=== PATIENT | male | born 1990 | race Caucasian/White ===

== ENCOUNTER 2022-09-22 12:11 | Emergency (ER) | payer SELFPAY ==
[2022-09-22 12:18] VITALS: BP 143/82; PULSE 90; RESP 20; TEMP 36.5; O2SAT 98; BMI 22.8
--- NOTE | 2022-09-22 12:49 | ED_ITS ---
HPI - Wound/Laceration General: Chief Complaint: Wound/Laceration Stated Complaint: right hand finger lac Time Seen by Provider: 09/22/22 12:22 History of Present Illness: 32-year-old male who was opening up a cat with a pocket knife lacerated his finger. Patient is right-handed male and lacerated his third finger on the dorsum of the finger at the distal joint proximal to the eponychium. Does not recall date of last tetanus vaccination. No numbness or tingling, able to extend and flex the digit at the distal, proximal, and MCP joint. Associated symptoms: Denies chills, fever(s) or nausea Review of Systems Const: Denies: fever(s) or chills Eyes: Denies: change in vision, blurry vision or blind spots ENMT: Denies: throat pain or uvular edema Card: Denies: chest pain or palpitations Resp: Denies: dyspnea or productive cough GI: Denies: abdominal pain or nausea Musc: Reports: extremity pain, joint pain, joint swelling and joint redness; Denies: neck pain or back pain Neuro: Denies: numbness in extremities or weakness in extremities Physical Exam Const: COMMON NORMALS: no acute distress and average body habitus HENMT: COMMON NORMALS: normocephalic, atraumatic and Normal external nose present HEAD & SCALP: normocephalic and atraumatic FACE & SINUS: normal facial exam NOSE: Normal external nose present THROAT: no uvular edema Eye: COMMON NORMALS: Equal, round and reactive pupils present and EOMs intact bilaterally PUPIL: Yes Equal, round and reactive pupils present Neck/C-Spine: COMMON NORMALS: full ROM and no lymphadenopathy Chest: COMMONS NORMALS: normal inspection of the chest and normal palpation of entire chest wall Resp: COMMON NORMALS: normal respiratory effort and No retractions Cardio: COMMON NORMALS: regular rate and regular rhythm RATE: regular rate RHYTHM: regular rhythm GI: COMMON NORMALS: Normal to inspection, nondistended, normoactive bowel sounds present Back/Pelvis: COMMON NORMALS: thoracic and lumbar spine normal to inspection Extremity: COMMON NORMALS: normal to inspection and full ROM NARRATIVE EXTREMITY EXAM: Examination of right hand demonstrates 1 cm laceration to the distal aspect of the right third finger on the dorsum. Angulated laceration towards the thumb. Probing of the wound does not demonstrate visible tendon. Intact strength at the DIP, PIP, and MCP. Intact sensation to gross touch on ulnar and radial aspect of the finger. Course Vital Signs: Vital signs: Vital Signs Temperature 97.7 F 09/22/22 12:18 Pulse Rate 90 09/22/22 12:18 Respiratory Rate 20 H 09/22/22 12:18 Blood Pressure 143/82 09/22/22 12:18 Pulse Oximetry 98 09/22/22 12:18 Oxygen Delivery Me thod 09/22/22 12:18 MDM - Wound/Laceration Medical Decision Making 32-year-old male with dominant right hand laceration on the dorsal aspect of the finger without tendon injury or neurovascular injury. Vitals nonactionable. Repair per procedure note above. Educated about possible complications of suture repair including failure of nail growth, infection, need to have sutures removed in 7 to 10 days. No evidence of infection today or tenderness injury or obvious bone exposure. No suspicion for fracture given mechanism. Discharge Plan Discharge Patient Disposition: Home, Self-Care w Plan Readm Clinical Impression: Laceration Condition: Stable Discharge Orders: Discharge ED (Routine); Ordered 09/22/22 Ordered By: Luis F Dumont Referrals: Luis F Dumont MD [Emergency Provider] - (Return to the emergency department with any concerns for infection, limited range of motion, other concerns about his repair today. Have your sutures removed in approximately 7 days. Do not submerge your wound in water. Keep open to air. Keep clean.) Discharge Diet: Usual diet Discharge Activity: Limit activity as instructed Patient Instructions: Finger Laceration (ED) Coding Level of Care Code ED Medical Billing And Coding Specialist for Katlyn Thacker
[2022-09-22] MEDS: tetanus-dipt-pertussis 0.5 mL SDV IM (12:55)
[2022-09-22] MEDS: lidocaine 1% INJ 10 mL (per mL) INJECTION (12:55)
== END 2022-09-22 13:02 | disposition home or self-care, planned readmission (81) ==
PROVIDERS: Emergency Provider General Practice
DX: S61.212A Laceration without foreign body of right middle finger without damage to nail, initial encounter (principal); W26.0XXA Contact with knife, initial encounter; Z23 Encounter for immunization
CPT/HCPCS: 12001; 90471; 90715; 99283

== ENCOUNTER 2023-08-14 12:01 | Outpatient (CLI) | payer BC, MEDICAID, SELFPAY ==
--- NOTE | 2023-08-14 12:03 | XR_ITS ---
WS: [id number] XR lumbar spine 2-3V* [id number] REASON FOR EXAM: chronic rt LBP FINDINGS: Mild rotatory scoliosis convex right. Spina bifida occulta L5. No other lumbar vertebral body abnormality. Minimal narrowing of the L4-L5 and L5 on S1 disc spaces. 67 mm of anterolisthesis of L5 on S1. IMPRESSION: Mild changes of degenerative spondylosis at L4-L5 and L5-S1 as above. The listhesis at L5-S1 potentially could be due to dysplasia or spondylolysis of posterior elements o f L5.
== END 2023-08-14 12:02 | disposition home or self-care (01) ==
LOC: RAD 12:02
PROVIDERS: Visit Provider Family Medicine Adult Medicine
DX: M47.817 Spondylosis without myelopathy or radiculopathy, lumbosacral region (principal); G89.29 Other chronic pain; Z78.9 Other specified health status
CPT/HCPCS: 72100

== ENCOUNTER 2024-03-10 13:10 | Emergency (ER) | payer BC, MEDICAID, SELFPAY ==
--- NOTE | 2024-03-10 13:09 | ECG_ITS ---
[facility] Test Date: 2024-03-10 Pat Name: Shayna Murphy Department: Room: Gender: Male Senior Insight Manager: : 1990 Requested By: Zulma Thomas Order Number: [id number] Melo MD: Channing Larry M.D. Measurements Intervals Hale Rate: 64 P: 73 GA: 187 QRS: 94 QRSD: 111 T: 68 QT: 432 QTc: 449 Interpretive Statements SINUS RHYTHM BORDERLINE RIGHT AXIS DEVIATION [QRS AXIS > 90] MODERATE INTRAVENTRICULAR CONDUCTION DELAY [110+ ms QRS DURATION] MODERATE ST DEPRESSION [0.05+ mV ST DEPRESSION] No previous ECG available for comparison Electronically Signed On 03-10-2024 16:11:54 CDT by Channing Larry M.D. [id number]
[2024-03-10 13:16] VITALS: BP 136/87; PULSE 70; RESP 16; TEMP 36.8; O2SAT 99; BMI 21.1
--- NOTE | 2024-03-10 13:32 | W.ED.CHESTPA ---
HPI - Chest Pain General: Chief Complaint: Chest Pain Stated Complaint: SOB, chest discomfort, fingernails blue Time Seen by Provider: 03/10/24 13:31 History of Present Illness: 33-year-old male patient comes in today for episodes of shortness of breath with occasional cough, fatigue, nightmares, night terrors. Patient reports the symptoms usually occur at night and awakes him. Patient has also noticed some discoloration in his nailbeds. Patient has a history of substance use disorder. Patient states that he had got hooked on some Internet drugs that he was taking for chronic pain. Patient has recently completed a round of Sublocade through a healthcare provider [place] in [facility]. Patient took his last dose of the medication 1 month ago. Patient appears nontoxic. Patient denies any other chronic medical disorder. Review of Systems General: Reports: 10 or more systems reviewed and unremarkable except in HPI and below PFSH ED PFSH: Medical History (Updated 03/10/24 @ 14:44 by EMELYN Cole) Epigastric abdominal pain Chronic pain [place]-neck deformity of finger of right hand Low back pain syndrome Surgical History (Updated 08/14/23 @ 11:46 by Burak Regan MD) No pertinent past surgical history Family History (Updated 08/14/23 @ 11:20 by Eunice Donald LPN) Father Stroke Hypertension Mother No problems noted. Social History (Updated 08/14/23 @ 11:20 by Eunice Donald LPN) Smoking and tobacco/nicotine status: former use of tobacco/nicotine Quit status (tobacco/nicotine): has quit using Alcohol intake: former Substance/Drug Use: former Physical Exam Const: COMMON NORMALS: alert HENMT: COMMON NORMALS: normocephalic HEAD & SCALP: normocephalic Neck/C-Spine: COMMON NORMALS: full ROM Chest: COMMONS NORMALS: normal inspection of the chest Resp: COMMON NORMALS: normal respiratory effort and clear to auscultation bilaterally AUSCULTATION: clear to auscultation bilaterally Cardio: COMMON NORMALS: regular rate and regular rhythm RATE: regular rate RHYTHM: regular rhythm GI: AUSCULTATION: Yes normoactive bowel sounds PALPATION: Yes Tenderness to palpation present (GI) (epigastric) : COMMON NORMALS: Yes no CVA tenderness BLADDER/KIDNEY EXAM: Yes no CVA tenderness Back/Pelvis: COMMON NORMALS: no CVA tenderness and thoracic and lumbar spine normal to inspection Extremity: COMMON NORMALS: normal to inspection Neuro: SENSORIUM/ORIENTATION: Yes alert Skin: COMMON NORMALS: turgor normal GENERAL SKIN EXAM: turgor normal Course Vital Signs: Vital signs: Vital Signs Temperature 98.3 F 03/10/24 13:16 Pulse Rate 64 03/10/24 13:51 Respiratory Rate 16 03/10/24 13:16 Blood Pressure 122/77 03/10/24 13:51 Pulse Oximetry 95 03/10/24 13:51 Oxygen Delivery Me thod Room Air 03/10/24 13:51 MDM - Chest Pain Medical Decision Making 33-year-old male patient comes in today for complaints of shortness of breath, fatigue, and occasional cough. Patient appears nontoxic. Patient reports symptoms started about 2 weeks ago. Skin is warm and dry. Lungs are clear to auscultation. Vital signs are normal. Differential diagnosis includes but not limited to viral syndrome, anxiety disorder, asthma, adverse drug effect, anemia, arrhythmia, pneumonia. Chest x-ray was unremarkable. EKG showed no ST elevation or arrhythmia. CBC and CMP were unremarkable. Reviewed these and exams with patient with recommendation for further follow-up and treatment. Patient was due for another dose of Sublocade tomorrow I kind of feel that it may be due to the medication and him weaning off the medication. Recommended patient follow-up with his provider for this medication and suggestions for further evaluation and treatment. Lab Data 03/10/24 13:55 03/10/24 13:55 Radiology Impressions Chest X-Ray 03/10/24 13:41 IMPRESSION: No acute or subacute chest abnormality. Laboratory Results WBC 4.30 10^3/uL (3.29-11.43) 03/10/24 13:55 RBC 5.31 10^6/uL (3.85-5.65) 03/10/24 13:55 Hgb 15.50 g/dL (11.27-16.99) 03/10/24 13:55 Hct 45.8 % (37-53) 03/10/24 13:55 MCV 86.3 fl (82-101) 03/10/24 13:55 MCH 29.2 pg (27-33) 03/10/24 13:55 MCHC 33.8 g/dL (30-55) 03/10/24 13:55 RDW 12.4 % (12.1-15.1) 03/10/24 13:55 Plt Count 233 10^3/cmm (157-399) 03/10/24 13:55 MPV 9.5 fL (7.4-10.4) 03/10/24 13:55 Neut % (Auto) 49.8 % 03/10/24 13:55 Lymph % (Auto) 40.9 % 03/10/24 13:55 Citrus % (Auto) 6.3 % 03/10/24 13:55 Eos % (Auto) 1.9 % 03/10/24 13:55 Baso % (Auto) 0.9 % 03/10/24 13:55 Neut # (Auto) 2.14 10^3/uL (1.8-7.7) 03/10/24 13:55 Lymph # (Auto) 1.8 10^3/uL (0.8-4.8) 03/10/24 13:55 Citrus # (Auto) 0.3 10^3/uL (0.2-0.9) 03/10/24 13:55 Eos # (Auto) 0.1 10^3/uL (0.0-0.8) 03/10/24 13:55 Baso # (Auto) 0.0 10^3/uL (0.0-0.1) 03/10/24 13:55 Nucleated RBC % (auto) 0 % 03/10/24 13:55 Nucleated RBCs # 0.0 /100WBC 03/10/24 13:55 ESR 3 mm/hr (0-10) 03/10/24 13:55 Sodium 141 mmol/L (136-145) 03/10/24 13:55 Potassium 3.9 mmol/L (3.5-5.1) 03/10/24 13:55 Chloride 101 mmol/L (98-107) 03/10/24 13:55 Carbon Dioxide 30 mmol/L (22-29) H 03/10/24 13:55 Anion Gap 13.9 (5-19) 03/10/24 13:55 BUN 11 mg/dL (6-20) 03/10/24 13:55 Creatinine 0.9 mg/dL (0.7-1.2) 03/10/24 13:55 GFR Calculation 98.4 mL/min (90-130) 03/10/24 13:55 Glucose 96 mg/dL (65-115) 03/10/24 13:55 Calculated Osmolality 291 mOsm/kg (285-295) 03/10/24 13:55 Calcium 9.8 mg/dL (8.5-10.5) 03/10/24 13:55 Total Bilirubin 0.6 mg/dL (0.15-1.2) 03/10/24 13:55 AST 20 U/L (0-40) 03/10/24 13:55 ALT 22 U/L (0-41) 03/10/24 13:55 Alkaline Phosphatase 67 U/L (40-130) 03/10/24 13:55 C-Reactive Protein 3.0 mg/L (0.0-4.9) 03/10/24 13:55 Total Protein 8.3 g/dL (6.6-8.7) 03/10/24 13:55 Albumin 5.2 g/dL (3.5-5.2) 03/10/24 13:55 Globulin 3.1 g/dL (1.3-4.6) 03/10/24 13:55 SARS-CoV-2 Ag (Rapid) negative (Negative) 03/10/24 13:58 All radiology interpretation(s) finalized by discharge EKG Data EKG 1: I personally reviewed and interpreted this EKG as follows: EKG interpretation date: 03/10/24 EKG interpretation time: 13:49 Prior EKG tracings: not available for review Interpretation: EKG shows a sinus rhythm with a regular rate at [address] elevation or ectopy is noted. No prior exam was available for comparison. Computer generated interpretation: Sinus rhythm. Borderline right axis deviation. Moderate intraventricular conduction delay. Moderate ST depression. No previous EKG available for comparison. Discharge Plan Discharge Patient Disposition: Home Clinical Impression: Atypical chest pain Condition: Stable Prescriptions: No Action No Known Home Medications Discharge Orders: Discharge ED (Routine); Ordered 03/10/24 Ordered By: David Leigh Discharge Diet: Usual diet Discharge Activity: Increase activity as tolerated Patient Instructions: Chest Pain (ED) Activity Restrictions/Additional Instructions: Follow-up with primary care for further evaluation and treatment. Return to ER for worsening symptoms such as increasing shortness of breath, severe chest pain, fever greater than 100.4, blood in vomit or stool. Thank you for choosing [facility] for your healthcare needs today. Please realize that you were seen in the emergency department and that we are providing you with an emergency medical screening exam and this may not be a complete and all exclusive of all testing and/or medical workup we may need to determine your element or severity of your illness. It is very important that you follow-up as instructed with your primary care provider or specialist for the additional evaluation and to discuss your medical treatment plan. You may return to the emergency department should you have concerns or if your condition changes or worsens in any way. Coding Level of Care Code ED Machine Lay Out Worker for Katlyn Thacker
--- NOTE | 2024-03-10 13:41 | XR_ITS ---
WS: [id number] XR chest 2V* [id number] REASON FOR EXAM: cough FINDINGS: The heart and the mediastinum are within normal limits. Calcified granulomatous disease in both hemithoraces. No acute or subacute pulmonary parenchymal or pleural abnormality is identified. Minimal levoscoliosis in the midthoracic spine. XR/XR chest 2V* [id number] IMPRESSION: No acute or subacute chest abnormality.
[2024-03-10 13:51] VITALS: BP 122/77; PULSE 64; O2SAT 95
[2024-03-10 14:08] LABS: Basophils % 0.9 %; Eosinophils # 0.1 10^3/uL (0.0-0.8); Eosinophils % 1.9 %; Hematocrit 45.8 % (37-53); Lymphocytes # 1.8 10^3/uL (0.8-4.8); Lymphocytes % 40.9 %; Mean Corpuscular HGB Conc 33.8 g/dL (30-55); Mean Corpuscular Hemoglobin 29.2 pg (27-33); Mean Corpuscular Volume 86.3 fl (82-101); Mean Platelet Volume 9.5 fL (7.4-10.4); Monocytes # 0.3 10^3/uL (0.2-0.9); Monocytes % 6.3 %; Neutrophils # 2.14 10^3/uL (1.8-7.7); Neutrophils % 49.8 %; Nucleated Red Blood Cells % 0 %; Platelet Count 233 10^3/cmm (157-399); Red Blood Count 5.31 10^6/uL (3.85-5.65); Red Cell Distribution Width 12.4 % (12.1-15.1)
--- NOTE | 2024-03-10 14:09 | PC.PHAR ---
PT HAS RX FOR SUBLOCADE 100MG/0.5ML SOLUTION EXTENDED RELEASE SYRING-ON HOLD AT [facility] [place], [place] FROM 02/12/24. NEVER PICKED UP
[2024-03-10 14:21] VITALS: BP 119/81; PULSE 56; O2SAT 97
[2024-03-10 14:24] LABS: Alanine Aminotransferase 22 U/L (0-41); Albumin Level 5.2 g/dL (3.5-5.2); Alkaline Phosphatase 67 U/L (40-130); Aspartate Amino Transferase 20 U/L (0-40); Blood Urea Nitrogen 11 mg/dL (6-20); Calcium 9.8 mg/dL (8.5-10.5); Carbon Dioxide 30 mmol/L (22-29); Chloride 101 mmol/L (98-107); Creatinine Clr Calc Pharmacy 111.4552; Globulin 3.1 g/dL (1.3-4.6); Glomerular Filtration Rate 98.4 mL/min (90-130); Glucose 96 mg/dL (65-115); Osmolality Calculated 291 mOsm/kg (285-295); Sodium 141 mmol/L (136-145); Total Bilirubin 0.6 mg/dL (0.15-1.2); Total Protein 8.3 g/dL (6.6-8.7)
[2024-03-10 14:25] LABS: Anion Gap 13.9 (5-19); Erythrocyte Sedimentation Rate 3 mm/hr (0-10); Potassium 3.9 mmol/L (3.5-5.1)
[2024-03-10 14:36] LABS: SARS Covid-2 Antigen negative (Negative)
[2024-03-10 15:22] VITALS: BP 121/77; PULSE 55; O2SAT 97
== END 2024-03-10 15:15 | disposition home or self-care (01) ==
PROVIDERS: Emergency Provider Nurse Practitioner Family
DX: R07.89 Other chest pain (principal); Z11.52 Encounter for screening for COVID-19; Z87.891 Personal history of nicotine dependence
CPT/HCPCS: 71046; 80053; 85025; 85651; 86140; 87426; 93005; 99285